=== PATIENT | female | born 1990 | race Caucasian/White ===

== ENCOUNTER 2016-11-05 22:41 | Emergency (ER) | payer MEDICAID ==
[~2016-11-05] VITALS: Ht 157.5 cm; Wt 59.1 kg
[2016-11-05 22:51] VITALS: Ht 157.5 cm; Wt 59.1 kg
[2016-11-06] MEDS ORDERED: SOD CHLORIDE 0.9% 1,000 ML IV STA (00:20)
[2016-11-06] MEDS ORDERED: ACETAMINOPHEN 325 MG TAB PO STA (00:20)
--- NOTE | 2016-11-06 00:37 | ERD ---
ER Documentation Chief Complaint Date/Time DATE: 11/06/16 TIME: 00:35 Chief Complaint 4 WEEKS WITH SEVERE CRAMPING AND VAG BLEEDING 5 PADS/HR HPI 26-year-old female presents here in emergency department for complaint of pelvic pain, cramping, vaginal bleeding and bilateral flank pain started today. Patient soaked 5 pads today. Patient is 3 para 1 1. Patient's last menstruation 09/27/2016. Patient describes the pelvic pain as cramping pain , 4/10 scale, accompanying the vaginal bleeding. Patient denies any fever or chills. Patient denies any vomiting. Patient did not take any medications for pain. ROS All systems reviewed and are negative except as per history of present illness. Medications Home Meds Active Scripts Acetaminophen* (Tylophen*) 500 Mg Capsule, 1 CAP PO Q6H Y for PAIN AND OR ELEVATED TEMP, #20 CAP Prov:RIGOBERTO ANAND [employer] 11/06/16 Cephalexin* (Keflex*) 500 Mg Capsule, 500 MG PO QID for 7 Days, CAP Prov:RIGOBERTO ANAND [employer]ESSING [employer]PER[employer] 11/06/16 Reported Medications [none] Unknown Strength No Conflict Check 11/06/16 Allergies Allergies: Coded Allergies: No Known Allergy (Unverified , 11/06/16) PMhx/Soc Medical and Surgical Hx: pt denies Medical Hx, pt denies Surgical Hx History of Surgery: No Anesthesia Reaction: No Hx Neurological Disorder: No Hx Respiratory Disorders: No Hx Cardiac Disorders: No Hx Psychiatric Problems: No Hx Alcohol Use: No Hx Substance Use: No Smoking Status: Never smoker FmHx Family History: No coronary disease, No diabetes, No other Physical Exam Vitals Vital Signs Date Time Temp Pulse Resp B/P Pulse Ox O2 Delivery O2 Flow Rate FiO2 11/05/16 22:51 98.9 84 16 120/81 100 Physical Exam GENERAL: The patient is well developed and appropriate for usual state of health, in no apparent distress. CHEST: Clear to auscultation bilaterally. There are no rales, wheezes or rhonchi. HEART: Regular rate and rhythm. No murmurs, clicks, rubs or gallops. No S3 or S4. ABDOMEN: Soft, nontender and nondistended. Good bowel sounds. No rebound or guarding. No gross peritonitis. No gross organomegaly or masses. No Geiger sign or McBurney point tenderness. BACK: No midline or flank tenderness. EXTREMITIES: Equal pulses bilaterally. There is no peripheral clubbing, cyanosis or edema. No focal swelling or erythema. Full range of motion. Grossly neurovascularly intact. NEURO: Alert and oriented. Cranial nerves 2-12 intact. Motor strength in all 4 extremities with 5/5 strength. Sensation grossly intact. Normal speech and gait. SKIN: There is no apparent rash or petechia. The skin is warm and dry. HEMATOLOGIC AND LYMPHATIC: There is no evidence of excessive bruising or lymphedema. No gross cervical, axillary, or inguinal lymphadenopathy. VAGINAL: Moderate amount of blood in the vaginal vault, cervical os Is closed. No cervical motion tenderness or adnexal tenderness noted. Result Diagram: 11/06/16 0033 Results 24 hrs Laboratory Tests Test 11/06/16 00:20 11/06/16 00:33 Urine Bacteria OCCASIONAL Urine Bilirubin NEGATIVE Urine Clarity SLIGHTLY CLOUDY Urine Color LT. YELLOW Urine Glucose NEGATIVE% Urine Hemoglobin 3+ Urine Ketones NEGATIVE Urine Leukocyte Esterase TRACE Urine Microscopic RBC >200/HPF Urine Microscopic WBC 0-2/HPF Urine Nitrite NEGATIVE Urine Specific [place] 1.015 Urine Squamous Epithelial Cells MODERATE Urine Total Protein NEGATIVE Urine Urobilinogen 0.2 E.U./dL Urine pH 6.0 Basophils # 0.110^3/ul Basophils % 0.4% Beta HCG, Quantitative 15097.0mIU/ml Eosinophils # 0.310^3/ul Eosinophils % 2.1% Hematocrit 39.7% Hemoglobin 13.6g/dl Lymphocytes # 3.710^3/ul Lymphocytes % 25.3% Mean Corpuscular Hemoglobin 30.8pg Mean Corpuscular Hemoglobin Concent 34.4g/dl Mean Corpuscular Volume 89.7fl Mean Platelet Volume 8.4fl Monocytes # 0.710^3/ul Monocytes % 4.9% Neutrophils # 9.810^3/ul Neutrophils % 67.3% Nucleated Red Blood Cells # 0.010^3/ul Nucleated Red Blood Cells % 0.0/100WBC Platelet Count 36414^3/UL Red Blood Count 4.4310^6/ul Red Cell Distribution Width 13.6% White Blood Count 14.610^3/ul Current Medications Medications (Trade) Dose Ordered Sig/Anson Route PRN Reason Start Time Stop Time Status Last Admin Dose Admin Sodium Chloride (NS) 1,000 ml @ 1,000 mls/hr Q1H STAT IV 11/06/16 00:20 11/06/16 01:19 DC 11/06/16 00:37 Acetaminophen 650 mg 650 mg ONCE STAT PO 11/06/16 00:20 11/06/16 00:22 DC 11/06/16 00:37 Ceftriaxone Sodium (Rocephin) 50 ml @ 100 mls/hr ONCE ONCE IVPB 11/06/16 02:00 11/06/16 02:29 11/06/16 02:01 Normal saline IV bolus was given here in emergency department for rehydration, patient tolerated IV fluids.Patient was given medication for pain here in emergency department, after treatment, patient verbalized feeling much better. Patient's pain is improved. PROCEDURE: ULTRASOUND OBSTETRICAL CLINICAL INDICATION: 26-year-old female with vaginal bleeding. TECHNIQUE: Multiple sonographic images of the pelvis were obtained. The images were reviewed on a PACS workstation. COMPARISON: None. FINDINGS: There is a single intrauterine gestation. The mean sac diameter is 2.03 cm. There is a pole present with a crown-rump length of 0.49 cm. This yields an estimated gestational age of 6 weeks and 4 days. The estimated date of delivery June 28, 2017. Cardiac activity is present at 132 beats per minute. There is no evidence for free fluid. The ovaries were not visualized secondary to overlying bowel gas. No adnexal masses are noted. IMPRESSION: 1. Single viable intrauterine gestation of approximately 6 weeks 4 days. The estimated date of delivery is June 28, 2017. 2. The ovaries were not visualized. .Nathen Riddle MD, Date Time Electronically viewed and signed by .Nathen Riddle MD, on 11/06/2016 01:18 .M/ CC: RIGOBERTO ANAND NP Procedures/MDM Medical Decision Making: Patients vaginal bleeding is most likely consistent of possible threatened . Patient does not show any evidence of hypovolemic shock. Patients hemoglobin and hematocrit is stable. There is low suspicion for ectopic . LUSIA results show at 6 weeks BetaHCG Quantitative is appropriate for The patient is Rh+, does not need RhoGAM this time. There is no signs of symptoms of dehydration. There is low suspicion for sepsis. Patient appears well and is hemodynamically stable. She also has urinary tract infection and will be treated. Disposition: Home. Condition: Stable Instructions: Patient is advised to do bed rest, avoid heavy lifting, and avoid having sex until cleared by OB doctor. Patient is advised to follow up with OB doctor or here at the ER in 48 hours for reevaluation of symptoms, repeat beta HCG quantitative and ultrasound. Patient is advised that is symptoms are worst, severe bleeding, dizziness, severe abdominal pain, fever, worst signs and symptoms to return to the emergency department immediately. Departure Diagnosis: Primary Impression: Threatened Additional Impressions: UTI (urinary tract infection) Urinary tract infection type: acute cystitis Hematuria presence: without hematuria Qualified Code: N30.00 - Acute cystitis without hematuria Intrauterine Condition: Stable Patient Instructions: Possible Miscarriage (Threatened ), Understanding Urinary Tract Infections (UTIs) Additional Instructions: : Patient is advised to do bed rest, avoid heavy lifting, and avoid having sex until cleared by OB doctor. Patient is advised to follow up with OB doctor or here at the ER in 48 hours for reevaluation of symptoms, repeat beta HCG quantitative and ultrasound. Patient is advised that is symptoms are worst, severe bleeding, dizziness, severe abdominal pain, fever, worst signs and symptoms to return to the emergency department immediately. RIGOBERTO ANAND NP Nov 06, 2016 00:37
[2016-11-06 01:10] LABS: BASOPHIL # 0.1 10^3/ul (0.0-0.1); BASOPHILS % 0.4 % (0.0-2.0); EOSINOPHILS # 0.3 10^3/ul (0.0-0.5); EOSINOPHILS % 2.1 % (0.0-7.0); HEMATOCRIT 39.7 % (37.0-47.0); HEMOGLOBIN 13.6 g/dl (12.0-16.0); LYMPHOCYTES # 3.7 10^3/ul (0.8-2.9); LYMPHOCYTES % 25.3 % (15.0-51.0); MEAN CORPUSCULAR HEMOGLOBIN 30.8 pg (29.0-33.0); MEAN CORPUSCULAR HGB CONC 34.4 g/dl (32.0-37.0); MEAN CORPUSCULAR VOLUME 89.7 fl (82.0-101.0); MEAN PLATELET VOLUME 8.4 fl (7.4-10.4); MONOCYTE # 0.7 10^3/ul (0.3-0.9); MONOCYTES % 4.9 % (0.0-11.0); NEUTROPHIL # 9.8 10^3/ul (1.6-7.5); NEUTROPHILS % 67.3 % (39.0-77.0); PLATELET COUNT 286 10^3/UL (140-440); RED BLOOD COUNT 4.43 10^6/ul (4.20-5.40); RED CELL DISTRIBUTION WIDTH 13.6 % (11.5-14.5); UNCORRECTED WBC 14.6 10^3/ul (4.8-10.8); WHITE BLOOD COUNT 14.6 10^3/ul (4.8-10.8)
[2016-11-06 01:11] LABS: CONDITION 1
--- NOTE | 2016-11-06 01:18 | RADRPT ---
PROCEDURE: ULTRASOUND OBSTETRICAL CLINICAL INDICATION: 26-year-old female with vaginal bleeding. TECHNIQUE: Multiple sonographic images of the pelvis were obtained. The images were reviewed on a PACS workstation. COMPARISON: None. FINDINGS: There is a single intrauterine gestation. The mean sac diameter is 2.03 cm. There is a pole p resent with a crown-rump length of 0.49 cm. This yields an estimated gestational age of 6 weeks and 4 days. The estimated date of delivery June 28, 2017. Cardiac activity is present at 132 beats per minute. There is no evidence for free fluid. The ovaries were not visualized secondary to overly ing bowel gas. No adnexal masses are noted. IMPRESSION: 1. Single viable intrauterine gestation of approximately 6 weeks 4 days. The estimated date of del destiny is June 28, 2017. 2. The ovaries were not visualized. .Nathen Riddle MD, Date Time Electronically viewed and signed by .Nathen Riddle MD, on 11/06/2016 01:18 .M/
[2016-11-06 01:36] LABS: ADD UMIC YES; URINE BILIRUBIN (Dip) NEGATIVE (NEGATIVE); URINE BLOOD (Dip) 3+ (NEGATIVE); URINE COLOR LT. YELLOW (YELLOW); URINE GLUCOSE (Dip) NEGATIVE (NEGATIVE); URINE KETONES (Dip) NEGATIVE (NEGATIVE); URINE LEUKOCYTE ESTERASE (Dip) TRACE (NEGATIVE); URINE NITRITE (Dip) NEGATIVE (NEGATIVE); URINE TOTAL PROTEIN (Dip) NEGATIVE (NEGATIVE); URINE UROBILINOGEN (Dip) 0.2 E.U./dL (0.1-1.0)
[2016-11-06 01:53] LABS: BACTERIA,URINE OCCASIONAL; SQUAMOUS EPITHELIAL CELL,UR MODERATE; URINE RBCS >200 /HPF (0)
[2016-11-06] MEDS ORDERED: ACET500C5 PO (01:56)
[2016-11-06] MEDS ORDERED: CEPH-443 PO (01:56)
[2016-11-06] MEDS ORDERED: CEFTRIAXONE 1 GM/50 ML (PMX) 50 ML IVPB ONE (02:00)
[2016-11-06 02:58] VITALS: BP 115/79; PULSE 70; RESP 16; TEMP 98.9
== END 2016-11-06 03:15 | disposition home or self-care (01) ==
LOC: FTE 22:41
DX: O20.0 Threatened abortion (principal); O23.11 Infections of bladder in pregnancy, first trimester; Z3A.01 Less than 8 weeks gestation of pregnancy
CPT/HCPCS: 36415; 76801; 81001; 84702; 85025; 86900; 86901; 96374; J0696; J7030; Z7502; Z7610; 81003